=== PATIENT | male | born 1970 | race Caucasian/White ===

== ENCOUNTER → 2024-06-07 | Outpatient (CLI) | payer BC ==
--- NOTE | 2024-06-07 18:14 | US ---
EXAMINATION TYPE: US liver DATE OF EXAM: 06/07/2024 COMPARISON: NONE CLINICAL INDICATION: Male, 54 years old with history of R94.5 ABN LIVER FUNCTION; Abnormal liver func tion TECHNIQUE: Multiple sonographic images of the right upper quadrant are obtained. 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 [facility], , 06/07/2024 6:12 PM
== END | disposition home or self-care (01) ==
LOC: RADUSWWP 07:47
PROVIDERS: ATTEND Family Medicine
DX: R94.5 Abnormal results of liver function studies (principal)
CPT/HCPCS: 76705